=== PATIENT | male | born 1960 | race Caucasian/White ===

== ENCOUNTER 2018-03-12 13:04 | Emergency (ER) | payer MEDICARE, OTHER ==
[~2018-03-12] VITALS: Ht 177.8 cm; Wt 75.0 kg
[2018-03-12 13:19] VITALS: Ht 177.8 cm; Wt 75.0 kg
[2018-03-12] MEDS ORDERED: COMBIVENT RESPIM4 GM INH (13:21)
[2018-03-12] MEDS ORDERED: SYMBICORT 16010.2 GM INH (13:21)
[2018-03-12] MEDS ORDERED: ALBUTEROL SULF8.5 GM INH (13:21)
[2018-03-12] MEDS ORDERED: NEURONTIN 400400 MG PO (13:22)
[2018-03-12] MEDS ORDERED: DILANTIN100 MG PO (13:22)
[2018-03-12] MEDS ORDERED: LISINOPRIL5 MG PO (13:23)
[2018-03-12] MEDS ORDERED: LAMICTAL100 MG PO (13:23)
[2018-03-12] MEDS ORDERED: ZANTAC300 MG PO (13:24)
[2018-03-12] MEDS ORDERED: IMITREX100 MG PO (13:24)
[2018-03-12 14:06] LABS: BASOPHILS 0.3 % (0-2); EOSINOPHILS 4.5 % (0-7); HEMATOCRIT 40.2 % (42.0-54.0); HEMOGLOBIN 13.1 g/dL (13.5-17.5); IMMATURE GRANULOCYTES 0.2 % (0-5); LYMPHOCYTES 29.6 % (15-50); MCH 30.9 pg (26.0-34.0); MCHC 32.6 g/dL (31.0-37.0); MCV 94.8 fL (80.0-100.0); MEAN PLATELET VOLUME 10.7 fL (7.4-10.4); MONOCYTES 7.7 % (2-11); NEUTROPHILS 57.7 % (40-80); RBC 4.24 10x6/uL (4.20-6.10); RDW 13.7 % (11.5-14.5); WBC 6.5 10x3/uL (4.8-10.8)
[2018-03-12 14:12] LABS: PLATELET COUNT 166 10x3/uL (130-400)
[2018-03-12 14:23] LABS: ALBUMIN 3.4 g/dL (3.4-5.0); ALKALINE PHOSPHATASE 94 U/L (46-116); ALT (SGPT) 18 U/L (10-68); BILIRUBIN - TOTAL 0.18 mg/dL (0.2-1.3); CALC OSMOLALITY 279 mosm/kg (275-300); CALCIUM 8.9 mg/dL (8.5-10.1); CARBON DIOXIDE 27.2 mmol/L (21.0-32.0); CHLORIDE - SERUM 107 mmol/L (98-107); GLUCOSE 90 mg/dL (74-106); PROTEIN - SERUM 7.1 g/dL (6.4-8.2); SODIUM 140 mmol/L (136-145); UREA NITROGEN 14 mg/dL (7-18); eGFR NON AFRICAN AMERICAN 81 mL/min (90-120)
[2018-03-12 14:32] LABS: CKMB 1.4 U/L (0.0-3.6); CREATINE KINASE 47 UL (21-232); TROPONIN-I < 0.017 ng/mL (0.000-0.060)
[2018-03-12] MEDS ORDERED: VIBRAMYCIN 100100 MG PO (15:28)
[2018-03-12] MEDS ORDERED: NORVASC5 MG PO (16:49)
[2018-03-12 17:08] VITALS: BP 150/79
== END 2018-03-12 17:08 | disposition home or self-care (01) ==
LOC: D.ER 13:04
PROVIDERS: Emergency Medicine
DX: R07.89 Other chest pain (principal); Z87.09 Personal history of other diseases of the respiratory system; I10 Essential (primary) hypertension; G40.909 Epilepsy, unspecified, not intractable, without status epilepticus

== ENCOUNTER → 2019-01-30 09:38 | Outpatient (CLI) | payer MEDICARE, OTHER ==
[2018-03-12 13:19] VITALS: BMI 23.7
[~2019-01-30 09:38] MED LIST: ALBUTEROL SULF8.5 GM INH; COMBIVENT RESPIM4 GM INH; DILANTIN100 MG PO; IMITREX100 MG PO; LAMICTAL100 MG PO; LISINOPRIL5 MG PO; NEURONTIN 400400 MG PO; NORVASC5 MG PO; SYMBICORT 16010.2 GM INH; VIBRAMYCIN 100100 MG PO; ZANTAC300 MG PO
--- NOTE | 2019-02-03 09:24 | EC ---
PATIENT:ANNABELLE ADAMS DATE OF SERVICE: 01/30/19 SEX: M MEDICAL RECORD: [id number] DATE OF : 56 [facility] AGE OF PATIENT: 58 ADMISSION DATE: 01/30/19 REFERRING PHYSICIAN: INTERPRETING PHYSICIAN: MARILYN CRUZ MD ECHOCARDIOGRAM REPORT ECHO CHARGES 4 ECHO COMPLETE Date: 01/30/19 CLINICAL DIAGNOSIS: MURMUR/ANGINA/HTN ECHOCARDIOGRAPHIC MEASUREMENTS (adult normal given) AC root (d.<3.7cm) 3.4 cm LV Septum d (<1.2 cm> 1.4 cm Valve Excursion 1.4 cm LV Septum (systole) 1.5 cm Left Atria (s.<4.0cm> 4.2 cm LVPW d(<1.2cm) 1.3 cm RV (d.<2.3cm) 2.8 cm LVPW (sytole) 1.4 cm LV diastole(<5.6CM) 4.7 cm MV E-F(>70mm/sec) cm LV systole 3.3 cm LVOT Diameter 1.9 cm MV exc.(>10mm) 1.3 cm Est.ejection fraction (50-75%) % DOPPLER: LVIT cm/sec A 89.0 cm/sec E 112 cm/sec LA cm/sec RVSP 14 mmHg LVOT 97 cm/sec AOP1/2T m/s Asc. Ao 135 cm/sec RVOT 87 cm/sec RA cm/sec PA 114 cm/sec AV Gradient Peak 7.33 mmHg AV Mean 3.68 mmHg AV Area 1.8 cm MV Gradient Peak 5.77 mmHg MV Mean 2.12 mmHg MV Area cm COMMENTS: Physician Office Specialist: 2 ALEXIS COLEMAN Laser Print Operator: 3 Dr. Farr TAPE# PACS Pericardial Effusion N DATE OF SERVICE: Adequate 2D, color flow, spectral Doppler, and M-mode. LVH is present. LV internal dimensions are normal. Wall motion is normal. EF is greater than or equal to 55%. Aortic valve is tricuspid. No evidence of stenosis by Doppler interrogation. Left atrium is normal. Mitral valve shows no prolapse. Trace MR. Right-sided chambers are grossly normal. Trace TR. TRANSINT:[id number] Voice Confirmation ID: [id number] DOCUMENT ID: [id number] ECHOCARDIOGRAM REPORT [id number] ANNABELLE ADAMS GREGORY A MD at 0924 CC: [id number] DICTATION DATE: 01/31/19 1245 COAL YARD SUPERVISOR: 01/31/19 1314 DEP CLI 01/30/19 [address] [place] [address]
[2019-02-06 11:57] VITALS: BMI 26.3
== END | disposition home or self-care (01) ==
LOC: D.HCCARDIO 09:38
PROVIDERS: ATTEND Internal Medicine Cardiovascular Disease
DX: R01.1 Cardiac murmur, unspecified (principal); I20.9 Angina pectoris, unspecified

== ENCOUNTER 2019-02-06 11:23 | Outpatient (CLI) | payer MEDICARE, OTHER ==
[~2019-02-06] VITALS: Ht 177.8 cm; Wt 83.2 kg
--- NOTE | ~2019-02-06 | HEMODYNAMI ---
PATIENT:ANNABELLE ADAMS MEDICAL RECORD: [id number] : 56 LOCATION:[facility] ADMISSION DATE: 02/06/19 Generatedon:02/06/201915:53 Patient name: ANNABELLE ADAMS Patient #: [id number] SSN: D OB: 1960 Date of study: 02/06/2019 Page: Of Hemodynamic Procedure Report Patient Data Patient Demographics Procedure consent was obtained First Name: ANNABELLE Gender: Male Last Name: ANGIE : 1960 [facility] Initial: C Age: 58 year(s) Patient #: [id number] Race: Unknown Additional ID: [id number] Contact details [address]: [address] [place] [address] State: [place] City: [place] Zip code: [address] Past Medical History Allergies: No known allergies Admission Admission Data Admission Date: 02/06/2019 Admission Time: 11:23 Lab Results Lab Result Date: 02/06/2019 Lab Result Time: 0:00 Biochemistry Name Units Result Min Max BUN mg/dl 13 --(--*-)-- 7 18 Creatinine mg/dl 1 --(--*-)-- 0.6 1.3 eGFR ml/min 81 *-(----)-- 90 120 NONAFRICAN CBC Name Units Result Min Max Hemoglobin g/dl 12.6 -*(----)-- 13.5 17.5 Procedure Procedure Types Cath Procedure Diagnostic Procedure LHC LHC w/Coronaries Procedure Description Procedure Date Procedure Date: 02/06/2019 Procedure Start Time: 15:33 Procedure End Time: 15:52 Procedure Staff Name Function Ovi De La Vega MD Performing Physician Ej Mariee RT Monitor Joselyn Gill RT Scrub Celeste Guajardo RN Nurse Procedure Data Cath Procedure Fluoroscopy Diagnostic fluoroscopy Total fluoroscopy Time: 1.6 time: 1.6 min min Diagnostic fluoroscopy Total fluoroscopy dose: 292 dose: 292 mGy mGy Contrast Material Contrast Material Type Amount (ml) Isovue 300 53 Entry Location Entry Primary Successful Side Size Upsize Upsize Entry Closure Succes sful Closure Location (Fr) 1 (Fr) 2 (Fr) Remarks Device Remarks Femoral Right 5 Fr Exoseal artery Estimated blood loss: 10 ml Diagnostic catheters Device Type Used For End Catheter Placement MULTIPACK JL 4.0 5Fr Procedure catheter MULTIPACK 3DRC 5Fr Procedure catheter MULTIPACK Pigtail 5 Fr Procedure catheter Procedure Medications Medication Administration Route Dosage Oxygen etCO2 Nasal cannula 2 l/min Lidocaine 2% added to field 20 Heparin Flush Bag added to field 2 bags (1000units/500ml NS) 0.9% NaCl I.V. 100 ml/hr Radial Cocktail I.A. 1 syringe (Verapamil 2mg/Nitro 400mcg/Heparin 1500units) Versed I.V. 2 mg Versed I.V. 2 mg Fentanyl I.V. 100 mcg Hemodynamics Rest HGB: 12.6 (g/dl) Heart Rate: 53 (bpm) Pressure Samples Time Site Value (mmHg) Purpose Heart Use Rate(bpm) 15:47 LV 114/11,16 Snapshot 59 15:47 AO 107/66(88) Pullback 62 15:47 LV 126/17,20 Pullback 62 Gradients Valve Time Site 1 Site 2 Mean SEP/DFP Peak To Heart Use (mmHg) (sec/min) Peak Rate (mmHg) (bpm) Aortic 15:47 LV AO 12 19 19 62 126/17,20 107/66(88) Calculations Valve P-P Mean Valve Index Valve Source Name Gradient Area Flow (cm2) Aortic 19 12 19 12 Snapshots Pre Cath Intra NCS Post Cath Vital Signs Time Heart Resp SPO2 etCO2 NIBP (mmHg) Rhythm Pain Sedation Rate (ipm) (%) (mmHg) Status Level (bpm) 15:27:28 83 30 97 41.9 118/74(104) NSR 0 (11) 10(A) , No pain 15:31:38 52 15 98 15.7 125/67(103) NSR 0 (11) 10(A) , No pain 15:35:52 50 14 100 37.4 125/73(118) NSR 0 (11) 10(A) , No pain 15:40:04 59 13 98 19.4 119/76(91) NSR 0 (11) 9(A) , No pain 15:44:17 72 12 100 13.4 122/71(101) NSR 0 (11) 9(A) , No pain 15:48:25 58 14 100 40.4 120/81(97) NSR 0 (11) 10(A) , No pain 15:52:37 60 12 100 0 125/73(109) NSR 0 (11) 10(A) , No pain Medications Time Medication Route Dose Verified Delivered Reason Notes Effectiveness by by 15:27:01 Oxygen etCO2 2 l/min Ovi Alonso used for Nasal St Omer Guajardo RN procedure cannula 15:27:08 Lidocaine 2% added 20ml Ovi Dior for local to vial [facility] anesthetic field MD MATTHEW 15:27:15 Heparin Flush added 2 bags Ovi Dior used for Bag to [facility] procedure (1000units/500ml field MD MATTHEW NS) 15:27:24 0.9% NaCl I.V. 100 Ovi Alonso Per ml/hr St Omer Guajardo RN physician 15:27:38 Radial Cocktail I.A. 1 Ovi Dior for (Verapamil syringe [facility] vasodilation 2mg/Nitro MD MATTEHW 400mcg/Heparin 1500units) 15:33:45 Versed I.V. 2 mg Ovi Alonso for sedation St Omer Guajardo RN, MD 15:33:51 Fentanyl I.V. 100 mcg Ovi Alonso for sedation St Omer Guajardo RN, MD 15:42:45 Versed I.V. 2 mg Ovi Alonso for sedation St Omer Guajardo RN, MD Procedure Log Time Note 15:11:04 Diagnostic Cath Status : Elective 15:11:22 Ej Mariee RT(R) (CV) sent for patient. Start room use. 15:11:23 Time tracking: Regular hours (M-F 7:00 - 5:00) 15:11:27 Plan of Care:Hemodynamics will remain stable., Cardiac rhythm will remain stable., Comfort level will be maintained., Respiratory function will remain adequate., Patient/ family verbilizes understanding of procedure., Procedure tolerated without complication., Recovers from procedure without complications.. 15:15:54 Patient received from Pre/Post Procedure Room to CCL 1 Alert and oriented. Tansferred to table in Supine position. 15:15:55 Warm blankets applied, and alejandra hugger turned on for patient comfort. 15:15:57 Signed procedure consent form obtained from patient. 15:15:58 Correct patient and procedure confirmed by team. 15:15:59 ECG and BP/O2 sat monitors applied to patient. 15::28 Vital chart was started 15:26:29 Baseline sample Acquired. 15::33 Rhythm: sinus bradycardia 15::35 Full Disclosure recording started 15:26:53 H&P Date Dictated: 01/24/2019 Within 30 days and on chart., H&P Addendum completed by physician on day of procedure. (MUST COMPLETE FOR ALL OUTPATIENTS). 15:27:01 Oxygen 2 l/min etCO2 Nasal cannula was administered by Celeste Guajardo RN; used for procedure; 15:27:08 Lidocaine 2% 20ml vial added to field was administered by Ovi De La Vega MD; for local anesthetic; 15:27:15 Heparin Flush Bag (1000units/500ml NS) 2 bags added to field was administered by Ovi De La Vega MD; used for procedure; 15:27:24 0.9% NaCl 100 ml/hr I.V. was administered by Celeste Guajardo RN; Per physician; 15:27:30 Pre-procedure instructions explained to patient. 15:27:30 Pre-op teaching completed and patient verbalized understanding. 15:27:32 Family in patients room. 15:27:35 Patient NPO since Breakfast. 15:27:38 Radial Cocktail (Verapamil 2mg/Nitro 400mcg/Heparin 1500units) 1 syringe I.A. was administered by Ovi De La Vega MD; for vasodilation; 15:27:44 Patient allergic to No known allergies 15:27:47 Is the patient allergic to Iodine/contrast media? No. 15:27:49 Is patient on blood thinner?No 15:27:52 Patient diabetic? No. 15:27:54 ----Pre-sedation anethsthesia assessment.---- 15:28:01 Previous problem with sedation/anesthesia? No ? 15:28:03 Snore? Yes 15:28:06 Sleep apnea? No 15:28:08 Deviated septum? No 15:28:10 Opens mouth fully? Yes 15:28:11 Sticks out tongue? Yes 15:28:41 Airway obstruction? Yes COPD 15:28:48 Dentures? Yes IN TIGHT 15:29:04 Pre procedure: right dorsailis pedis pulse 1+ Palpable, but thready & weak; easily obliterated 15:29:08 Modified Giorgio's test Ulnar < 7 seconds 15:29:23 Patient pain scale 0/10 ?. 15:29:49 IV patent on arrival in left wrist with 0.9% NaCl at O. ::28 Lab Result : BUN 13 mg/dl : Lab Result : Creatinine 1 mg/dl 15:: Lab Result : eGFR NONAFRICAN 81 ml/min 15:: Lab Result : Hemoglobin 12.6 g/dl 15::35 Right Radial & Right Groin area was prepped with chlora-prep and draped in sterile fashion 15::38 Alarms reviewed by R. N. 15::38 Sharps counted by scrub and verified by R.N. 15::39 Physician arrived 15::40 --------ALL STOP TIME OUT------ 15::40 Final Timeout: patient, procedure, and site verified with staff and physician. All members of the team are in agreement. 15:31:42 Right Radial & Right Groin site verified by team. 15:31:47 Fire Safety Assessment: A--An alcohol-based skin anteseptic being used preoperatively., C--Open oxygen or nitrous oxide is being used., D--An ESU, laser, or fiber-optic light is being used. 15:31:53 Physical assessment completed. ASA score P 2 - A patient with mild systemic disease as per Ovi De La Vega MD. 15:31:59 2) 60-89 Mildly reduced kidney function, and other findings (as for stage 1) point to kidney disease. 15:32:25 Maximum allowable contrast dose (3.7 X eGFR X 0.75)224 ml. 15:32:30 Sedation plan: IV Moderate Sedation Medication:Versed, Fentanyl 15:32:48 ACIST Syringe (33294) opened to sterile field. 15:32:49 Medline Cath Pack ([id number]) opened to sterile field. 15:32:50 Bag Decanter () opened to sterile field. 15:32:50 ACIST Hand Control (46554) opened to sterile field. 15:32:51 ACIST Manifold (92221) opened to sterile field. 15:32:51 Tegaderm 4 x 4 (1626W) opened to sterile field. 15:32:52 MBrace Wrist Support ([id number]) opened to sterile field. 15:32:53 NEEDLE Cook 21G 4cm Radial (G66417) opened to sterile field. 15:33:00 EMERALD Guide Wire (502-738) opened to sterile field. 15:33:01 SHEATH 6FR RAIN (3239836) opened to sterile field. 15:33:05 Procedure started. 15:33:12 Local anesthetic to right radial artery with Lidocaine 2% by Ovi De La Vega MD.INITIAL ACCESS ONLY 15:33:19 Zero performed for pressure channel P1 15:33:45 Versed 2 mg I.V. was administered by Celeste Guajardo RN; for sedation; 15:33:51 Fentanyl 100 mcg I.V. was administered by Celeste Guajardo RN; for sedation; 15:36:03 UNABLE TO GAIN RADIAL 15:36:33 SHEATH 5FR [place] (ABK190) opened to sterile field. 15:36:38 Local anesthetic to right femoral artery with Lidocaine 2% by Ovi De La Vega MD.ADDITIONAL ACCESS 15:36:43 Use device set Multipack Set 15:41:51 A 5 Fr sheath was inserted into the Right Femoral artery 15:42:23 A MULTIPACK JL 4.0 5Fr catheter was advanced over the wire and used for Procedure. 15:42:45 Versed 2 mg I.V. was administered by Celeste Guajardo RN; for sedation; 15:42:48 DIAGNOSTIC Multipack 5Fr catheter set ([id number]) opened to sterile field. 15:43:09 LCA angiography performed. 15:44:02 Catheter removed. 15:44:12 A MULTIPACK 3DRC 5Fr catheter was advanced over the wire and used for Procedure. 15:45:34 RCA angiography performed. 15:45:59 Catheter removed. 15:46:04 A MULTIPACK Pigtail 5 Fr catheter was advanced over the wire and used for Procedure. 15:46:12 EXOSEAL 5Fr (EX500) opened to sterile field. 15:47:03 LV hemodynamics recorded. 15:47:06 LV gram done using ANGEL 15:47:14 EF : 55 % 15:48:03 Sheath removed intact; hemostasis achieved with Exoseal to the Right Femoral artery. 15:48:06 Procedure ended.(Physican Out) 15:48:15 Fluoroscopy time 01.60 minutes. 15:48:21 Fluoroscopy dose: 292 mGy 15:48:21 Flurop Dose total: 292 15:48:27 Dose Area Product 50064 mGy/cm. 15:48:32 Contrast amount:Isovue 300 53ml. 15:48:35 Maximum allowable dose exceeded? No. 15:48:36 Sharps counted by scrub and verified by R.N. 15:48:42 Insertion/operative site no bleeding no hematoma. 15:48:45 Post-op/insertion site Right Femoral artery dressed using a 4 x 4 and Tegaderm. 15:48:51 Post right femoral artery:stable 15:48:54 Post Procedure Pulses reassessed and unchanged 15:48:58 Post-procedure physical assessment completed. ASA score P 2 - A patient with mild systemic disease as per Ovi De La Vega MD. 15:49:03 Post procedure rhythm: sinus rhythm 15:49:07 Estimated blood loss: 10 ml 15:49:10 Patient needs reinforcement of post procedure teaching. 15:49:11 Procedure and supply charges have been captured, reviewed, submitted and are correct. 15:52:18 Vital chart was stopped 15:52:19 See physician's report for complete and final results. 15:52:25 Report given to Pre/Post Procedure Room. 15:52:34 Patient transfered to Pre/Post Procedure Room with Stretcher. 15:52:36 Procedure ended. 15:52:36 Full Disclosure recording stopped 15:52:41 End room use (Document Last) Device Usage Item Name Manufacture Quantity Catalog Hospital Part Current Minima l Lot# / Number Charge Number Stock Stock Serial# Code ACIST Acist 1 15247 253395 922460 424357 20 Syringe Medical (00964) Systems Inc Medline Medline 1 [id number] 372969 61243 959791 5 Cath Pack ([id number]) Bag Microtek 1 025157 51247 320115 5 Decanter Medical Inc. () ACIST Hand Acist 1 59192 784693 307112 648122 5 Control Medical (62269) Systems Inc ACIST Acist 1 53714 409941 996493 071350 5 Manifold Medical (89146) Systems Inc Tegaderm 4 3M 1 1626W 523517 613084 254237 5 x 4 (1626W) MBrace Advanced 1 1400250-00 173673 41185 523740 5 Wrist Vascular Support Dynamics ([id number]) NEEDLE Cook Cook Medical 1 U47566 956079 776640 853621 5 21G 4cm Radial (L40664) EMERALD Cardinal 1 502-455 730377 464177 845465 5 Guide Wire Health (502455) SHEATH 6FR Cardinal 1 3072239 478842 2352437 424091 5 [facility] Health (1882964) SHEATH 5FR Terumo 1 UWT445 512260 420214 834628 5 [place] (BVC215) MULTIPACK Cardinal 1 103996 5 JL 4.0 5Fr Health catheter DIAGNOSTIC Cardinal 1 AZ6252 774626 83857 128813 30 Multipack Health 5Fr catheter set (XC3047) MULTIPACK Cardinal 1 227206 5 3DRC 5Fr Health catheter MULTIPACK Cardinal 1 316947 5 Pigtail 5 Health Fr catheter EXOSEAL 5Fr Cardinal 1 EX500 984308 321801 625683 10 (EX500) Health Signature Audit [place] Stage Time Signature Unsigned Intra-Procedure 02/06/2019 Ej Mariee 3:53:04 PM RT(R) (CV) Signatures Performing Physician : Signature : Ovi De La Vega MD Date : Time : Monitor : Ej Mariee RT Signature : Date : Time : Nurse : Celeste Guajardo RN Signature : Date : Time : [facility] [address] [place] [address]
[2019-02-06 11:57] VITALS: BP 113/74; Ht 177.8 cm; Wt 83.2 kg
[2019-02-06 12:21] LABS: ALT (SGPT) 13 U/L (10-68); CALC OSMOLALITY 281 mosm/kg (275-300); CALCIUM 8.8 mg/dL (8.5-10.1); CARBON DIOXIDE 23.1 mmol/L (21.0-32.0); CHLORIDE - SERUM 108 mmol/L (98-107); CHOL - HDL RATIO 2.5 ratio (2.3-4.9); CHOLESTEROL, TOTAL 196 mg/dL (0-200); GLUCOSE 88 mg/dL (74-106); HDL CHOLESTEROL 80 mg/dL (32-96); LDL CHOLESTEROL 99 mg/dL (0-100); LDL-HDL RATIO 1.2 ratio (1.5-3.5); POTASSIUM - SERUM 3.8 mmol/L (3.5-5.1); SODIUM 142 mmol/L (136-145); TRIGLYCERIDE 89 mg/dL (30-200); UREA NITROGEN 13 mg/dL (7-18); eGFR NON AFRICAN AMERICAN 81 mL/min (90-120)
[2019-02-06 12:27] LABS: BASOPHILS 0.2 % (0-2); EOSINOPHILS 3.2 % (0-7); HEMATOCRIT 37.8 % (42.0-54.0); HEMOGLOBIN 12.6 g/dL (13.5-17.5); LYMPHOCYTES 29.2 % (15-50); MCH 31.1 pg (26.0-34.0); MCHC 33.3 g/dL (31.0-37.0); MCV 93.3 fL (80.0-100.0); MEAN PLATELET VOLUME 10.3 fL (7.4-10.4); MONOCYTES 9.2 % (2-11); NEUTROPHILS 58.2 % (40-80); RBC 4.05 10x6/uL (4.20-6.10); RDW 14.1 % (11.5-14.5); WBC 5.3 10x3/uL (4.8-10.8)
[2019-02-06 12:30] LABS: PLATELET COUNT 205 10x3/uL (130-400)
--- NOTE | 2019-02-06 16:01 | NUR ---
PT ARRIVED BY STRETCHER. PLACED ON MONITORS. ASSESSMENT COMPLETED. RIGHT GROIN DRESSING C/D/I. NO S/S OF HEMATOMA NOTED. FAMILY AT BEDSIDE. DR. CALHOUN ROUNDING AND SPEAKING WITH PT AND PT'S FAMILY.
--- NOTE | 2019-02-06 16:16 | NUR ---
PT RESTING COMFORTABLY. VSS. RIGHT GROIN DRESSING C/D/I. NO S/S OF HEMATOMA NOTED. FAMILY AT BEDSIDE. RIGHT PEDAL PULSE PALPABLE
--- NOTE | 2019-02-06 16:45 | NUR ---
PT RESTING COMFORTABLY. VSS. RIGHT GROIN DRESSING C/D/I. NO S/S OF HEMATOMA NOTED. RIGHT PEDAL PULSE PALPABLE.
--- NOTE | 2019-02-06 17:05 | NUR ---
RIGHT GROIN DRESSING C/D/I. NO S/S OF HEMATOMA NOTED. VSS. CALL LIGHT WITHIN REACH. FAMILY AT BEDSIDE. PT'S HEAD OF BED INC TO 30 DEGREES. TOLERATED WELL. SET UP WITH DRINK AND SANDWICH TRAY. DENIES NAUSEA.
--- NOTE | 2019-02-06 17:35 | NUR ---
LEFT ARM PIV D/C'D WITH CATH TIP INTACT. TOLERATED WELL. DISCUSSED DISCHARGE INSTRUCTIONS WITH PT AND PT'S FAMILY. THEY VOICED UNDERSTANDING. RIGHT GROIN DRESSING C/D/I. NO S/S OF HEMATOMA NOTED. PT INSTRUCTED TO GET UP AND DRESSED. CALL LIGHT WITHIN REACH. FAMILY AT BEDSIDE TO ASSIT.
--- NOTE | 2019-02-06 17:45 | NUR ---
PT TAKEN OUT TO VEHICLE BY WHEELCHAIR. STOPPED AT RESTROOM AND VOIDED WITHOUT DIFFICULTY. NO S/S OF DISTRESS NOTED. ALL BELONGINGS AND PAPEROWORK IN HAND.
--- NOTE | 2019-02-14 08:42 | OP ---
PATIENT NAME: ANNABELLE ADAMS MEDICAL RECORD: [id number] :56 LOCATION:D.[facility] ADMISSION DATE: SURGEON: MARILYN CRUZ MD DATE OF OPERATION: 02/06/2019 PROCEDURES: Left heart catheterization, selective coronary angiography, right femoral artery approach. CATHETERS: A 5-Central [place] sheath, 5/4 left and right Aliza, 5/4 pig. The procedure was well tolerated, and the patient was returned to buck. Sheath removed. ExoSeal device was placed. FINDINGS: Left ventriculography in 30-degree ANGEL view: Normal wall motion and normal systolic function. CORONARY ANATOMY: LEFT MAIN: Left main is free of disease. LAD: Free of disease in the diagonal system. CIRCUMFLEX: Left dominant system. Free of disease. RIGHT CORONARY ARTERY: Rudimentary, free of disease. IMPRESSION: Normal LV systolic function. Normal coronary anatomy. TRANSINT:[id number] Voice Confirmation ID: [id number] DOCUMENT ID: [id number] MARILYN CRUZ MD at 0842 CC: [id number] DICTATION DATE: 02/06/19 1556 RN EMBEDDED: 02/06/192054 DEP CLI 02/06/19 [facility] [address] [facility] [place] [address]
== END 2019-02-06 17:45 | disposition home or self-care (01) ==
LOC: D.CATH 11:23
PROVIDERS: ATTEND Internal Medicine Interventional Cardiology
DX: I20.9 Angina pectoris, unspecified (principal); R94.30 Abnormal result of cardiovascular function study, unspecified

== ENCOUNTER → 2020-10-02 11:11 | Day surgery (SDC) | payer OTHER ==
[2019-02-06 11:57] VITALS: BMI 26.3
--- NOTE | ~2020-10-02 | HEMODYNAMI ---
PATIENT:ANNABELLE ADAMS MEDICAL RECORD: [id number] : 56 LOCATION:[facility] ADMISSION DATE: 10/02/20 Generatedon:113:46 Patient name: ANNABELLE ADAMS Patient #: [id number] SSN: D OB: 1960 Date of study: 10/02/2020 Page: Of Hemodynamic Procedure Report Patient Data Patient Demographics Procedure consent was obtained First Name: ANNABELLE Gender: Male Last Name: ANGIE : 1960 Middle Initial: C Age: 60 year(s) Patient #: [id number] Race: Unknown Additional ID: [id number] Contact details [address]: [address] [place] [address] State: [place] City: [place] Zip code: [address] Past Medical History Allergies: No known allergies Admission Admission Data Admission Date: 10/02/2020 Admission Time: 11:11 Procedure Procedure Types Cath Procedure Peripheral Cath Diagnostic Procedure Miscellaneous Epidural Steroid Injection Procedure Description Procedure Date Procedure Date: 10/02/2020 Procedure Start Time: 13:33 Procedure Staff Name Function Yaya De La Torre MD Performing Physician Cinda Ruiz RT Corrective Therapy Aide Taj Chavarria RT Scrub Procedure Data Cath Procedure Fluoroscopy Diagnostic fluoroscopy Total fluoroscopy Time: 0.6 time: 0.6 min min Diagnostic fluoroscopy Total fluoroscopy dose: 26 dose: 26 mGy mGy Hemodynamics Rest Pre Cath Intra NCS Post Cath Procedure Log Time Note 13:03:44 KIT EPIDURAL CATHETERIZATION opened to sterile field. 13:06:37 Time tracking: Regular hours (M-F 7:00 - 5:00) 13:07:28 Patient received from Other to IR Alert and oriented. Tansferred to table in Prone position. 13:07:31 Signed procedure consent form obtained from patient. 13:07:34 - 13:07:35 Pre-procedure instructions explained to patient. 13:07:36 Pre-op teaching completed and patient verbalized understanding. 13:07:41 Family unavailable. 13:07:46 Is the patient allergic to Iodine/contrast media? No. 13:07:48 Is patient on blood thinner?No 13:08:00 Patient allergic to No known allergies 13:08:17 - 13:08:37 Lumbar area was prepped with betadine and draped in sterile fashion 13:32:24 Physician arrived 13:32:25 --------ALL STOP TIME OUT------ 13:32:26 Final Timeout: patient, procedure, and site verified with staff and physician. All members of the team are in agreement. 13:33:04 Procedure started. 13:33:04 Full Disclosure recording started 13:33:11 Local anesthetic to Lumbar area with Lidocaine 1% by Yaya De La Torre MD.INITIAL ACCESS ONLY 13:43:56 epidural steroid performed 13:44:19 Procedure ended.(Physican Out) 13:44:54 Fluoroscopy time 00.60 minutes. 13:44:59 Fluoroscopy dose: 26 mGy 13:44:59 Flurop Dose total: 26 13:45:46 Procedure and supply charges have been captured, reviewed, submitted an d are correct. Device Usage Item Name Manufacture Quantity Catalog Hospital Part Current Minima l Lot# / Number Charge Number Stock Stock Serial# Code KIT EPIDURAL Teleflex 1 [id number] 5 CATHETERIZATION Signature Audit [place] Stage Time Signature Unsigned Intra-Procedure 10/02/2020 Cinda Ruiz 1:46:28 PM RT(R) [facility] [address] [place] [address]
== END | disposition home or self-care (01) ==
LOC: D.RAD 11:11
DX: M54.5 Low back pain (principal); M54.32 Sciatica, left side; M54.31 Sciatica, right side

== ENCOUNTER 2020-10-09 11:55 | Emergency (ER) | payer OTHER ==
[~2020-10-09] VITALS: Ht 177.8 cm; Wt 78.5 kg
[2020-10-09 12:09] VITALS: Ht 177.8 cm; Wt 78.5 kg
[2020-10-09 12:51] LABS: BASOPHILS 0.2 % (0-2); EOSINOPHILS 1.1 % (0-7); HEMATOCRIT 39.6 % (42.0-54.0); HEMOGLOBIN 12.8 g/dL (13.5-17.5); IMMATURE GRANULOCYTES 0.3 % (0-5); LYMPHOCYTES 17.3 % (15-50); MCH 28.2 pg (26.0-34.0); MCHC 32.3 g/dL (31.0-37.0); MCV 87.2 fL (80.0-100.0); MEAN PLATELET VOLUME 10.7 fL (7.4-10.4); MONOCYTES 9.7 % (2-11); NEUTROPHIL ABS# 10.75 10x3/uL (1.78-5.38); NEUTROPHILS 71.4 % (40-80); PLATELET COUNT 220 10x3/uL (130-400); RBC 4.54 10x6/uL (4.20-6.10); RDW 15.9 % (11.5-14.5)
[2020-10-09 13:00] LABS: CALC OSMOLALITY 274 mosm/kg (275-300); CARBON DIOXIDE 23.3 mmol/L (21.0-32.0); CHLORIDE - SERUM 104 mmol/L (98-107); CREATININE - SERUM 0.9 mg/dL (0.6-1.3); GLUCOSE 77 mg/dL (74-106); SODIUM 137 mmol/L (136-145); UREA NITROGEN 17 mg/dL (7-18); eGFR NON AFRICAN AMERICAN > 90 mL/min (90-120)
[2020-10-09 13:08] LABS: ALBUMIN 3.5 g/dL (3.4-5.0); ALKALINE PHOSPHATASE 150 U/L (30-120); ALT (SGPT) 16 U/L (10-68); BILIRUBIN - TOTAL 0.35 mg/dL (0.2-1.3); POTASSIUM - SERUM 4.4 mmol/L (3.5-5.1); PROTEIN - SERUM 7.4 g/dL (6.4-8.2); TROPONIN-I < 0.017 ng/mL (0.000-0.060)
[2020-10-09] MEDS ORDERED: ZPAK PO (14:54)
[2020-10-09] MEDS ORDERED: IPRAT-ALBUT 0.5-3 ML UPD (14:59)
[2020-10-09] MEDS ORDERED: PREDNISONE20 MG PO (14:59)
[2020-10-09 15:26] VITALS: BP 127/70
== END 2020-10-09 15:26 | disposition home or self-care (01) ==
LOC: D.ER 11:55
PROVIDERS: Emergency Medicine
DX: J18.9 Pneumonia, unspecified organism (principal); G62.9 Polyneuropathy, unspecified; I10 Essential (primary) hypertension; J44.9 Chronic obstructive pulmonary disease, unspecified